=== PATIENT | male | born 2005 | race Caucasian/White ===

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

== ENCOUNTER 2025-08-03 20:55 | Emergency (ER) | payer OTHER, SELFPAY ==
[~2025-08-03] VITALS: Ht 182.9 cm; Wt 107.2 kg
[~2025-08-03 20:55] MED LIST changes: +IBUP200T46 PO; +NAPR-837 PO
[2025-08-03 23:16] VITALS: BP 176/101; TEMP 97.6; O2SAT 99
== END 2025-08-04 01:18 | disposition left against medical advice (07) ==
LOC: M ED 20:55
DX: Z53.21 Procedure and treatment not carried out due to patient leaving prior to being seen by health care provider (principal)